=== PATIENT | female | born 1960 | race Two or more races ===

== ENCOUNTER 2018-01-04 22:10 | Emergency (ER) | payer SELFPAY ==
[2018-01-04 22:49] LABS: BASOPHILS 1.6 % (0-2); EOSINOPHILS 2.9 % (0-7); HEMATOCRIT 37.9 % (36.0-48.0); HEMOGLOBIN 12.5 g/dL (12-16); IMMATURE GRANULOCYTES 0.1 % (0-5); LYMPHOCYTES 47.8 % (15-50); MCH 29.8 pg (26.0-34.0); MCV 90.2 fL (80.0-100.0); MEAN PLATELET VOLUME 10.7 fL (7.4-10.4); MONOCYTES 7.7 % (2-11); NEUTROPHILS 39.9 % (40-80); PLATELET COUNT 180 10x3/uL (130-400); RDW 13.1 % (11.5-14.5); WBC 7.9 10x3/uL (4.8-10.8)
[2018-01-04 23:06] LABS: ALBUMIN 3.5 g/dL (3.4-5.0); ALKALINE PHOSPHATASE 81 U/L (46-116); ALT (SGPT) 37 U/L (10-68); C-REACTIVE PROTEIN 0.6 mg/dL (0.0-0.9); CALC OSMOLALITY 281 mosm/kg (275-300); CALCIUM 7.6 mg/dL (8.5-10.1); CARBON DIOXIDE 27.8 mmol/L (21.0-32.0); CHLORIDE - SERUM 105 mmol/L (98-107); CREATININE - SERUM 0.8 mg/dL (0.6-1.3); GLUCOSE 111 mg/dL (74-106); POTASSIUM - SERUM 3.7 mmol/L (3.5-5.1); PROTEIN - SERUM 7.7 g/dL (6.4-8.2); SODIUM 140 mmol/L (136-145); UREA NITROGEN 19 mg/dL (7-18); eGFR NON AFRICAN AMERICAN 79 mL/min (90-120)
== END 2018-01-05 00:34 | disposition home or self-care (01) ==
LOC: D.ER 22:10
PROVIDERS: Family Medicine
DX: H40.9 Unspecified glaucoma (principal); R51 Headache